=== PATIENT | male | born 1995 | race Caucasian/White ===

== ENCOUNTER 2016-11-23 19:20 | Emergency (ER) | payer OTHER ==
[2016-11-23 19:59] VITALS: BP 124/69
--- NOTE | 2016-11-23 20:36 | ED Physician Documentation ---
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 11/23/16 traZODone [Desyrel] 50 mg PO HS 11/23/16 11/23/16 - Allergies Allergies/Adverse Reactions: Allergies Allergy/AdvReac Type Severity Reaction Status Date / Time No Known Drug Allergies Allergy Verified 11/23/16 19:36 PD ED PE NORMAL - Vitals Vital signs reviewed: Yes - General General: Alert and oriented X 3 - HEENT HEENT: Moist mucous membranes (no oral lesions) - Neck Neck: Supple, no meningeal sign - Cardiac Cardiac: RRR - Respiratory Respiratory: No respiratory distress, Clear bilaterally - Extremities Extremities: Other (excoriated papular rash most notable around wrists and ankles but diffuse, also in web spaces, few burrows, no vesicles petecchiae purpura etc) Results - Vitals Vitals: Vital Signs - 24 hr 11/23/16 11/23/16 19:33 19:58 Temperature 36.6 C 35.9 C L Heart Rate 59 L 64 Respiratory 20 15 Rate Blood Pressure 126/72 124/69 O2 Saturation 100 100 Oxygen O2 Source Room air Departure - Departure Disposition: 01 Home, Self Care Clinical Impression: Scabies Condition: Good Instructions: ED Scabies Follow-Up: ANTIONE Smith [Provider Group] Prescriptions: Permethrin [Elimite] 30 gm TP ONCE #60 cream..g. Comments: If symptoms persist, may repeat treatment in one week if symptoms persist. Also if symptoms persist ask your PMD for a referral to dermatology
[2016-11-23] MEDS ORDERED: HALOPERIDOL 5 MG/ML VIAL ONE (21:19)
[2016-11-23] MEDS ORDERED: diphenhydrAMINE INJ 50 MG/ML VIAL ONE (21:19)
== END 2016-11-23 20:57 | disposition home or self-care (01) ==
LOC: ED 19:20
DX: B86 Scabies (principal)
CPT/HCPCS: 99283

== ENCOUNTER 2017-04-04 04:01 | Inpatient (IN) | payer OTHER ==
--- NOTE | 2017-04-04 04:11 | ED Physician Documentation ---
PD HPI ABD PAIN - Stated complaint Stated Complaint: ABDOMINAL PAIN - Chief complaint Chief Complaint: Abd Pain - History obtained from History obtained from: Patient - History of Present Illness Timing - onset: Yesterday Timing - duration: Days (1) Timing - details: Abrupt onset, Still present (worse the past few hours), Waxing and waning Quality: Sharp, Pain Location: RLQ Radiation: No: Chest, Lower back, Right flank Improved by: Laying still. No: Eating Worsened by: Moving, Other (cough). No: Eating, Breathing Associated symptoms: Nausea, Loss of appetite. No: Fever, Vomiting, Diarrhea, Dysuria, Hematuria, Chest pain, Testicular pain Similar symptoms before: No diagnosis (had similar couple of years ago and was in hospital in [facility] ([facility]) for 5 days with Dx of "fluid in abdomen". Patient states got IV meds and no surgery. He does not know Dx.) Recently seen: Not recently seen Review of Systems Constitutional: denies: Fever, Chills Nose: denies: Rhinorrhea / runny nose, Congestion Throat: denies: Sore throat Cardiac: denies: Chest pain / pressure, Palpitations Respiratory: reports: Cough (chronic due to Valley Fever). denies: Dyspnea GI: reports: Abdominal Pain, Nausea. denies: Abdominal Swelling, Vomiting, Constipation, Diarrhea : denies: Dysuria, Frequency, Discharge, Testicular pain Skin: denies: Rash, Lesions Musculoskeletal: denies: Back pain Neurologic: denies: Generalized weakness, Near syncope, Altered mental status Endocrine: denies: Weight loss, Easy bruising / bleeding PD PAST MEDICAL HISTORY - Past Medical History Cardiovascular: None Respiratory: Other (Valley Fever with chronic cough) Neuro: None Endocrine/Autoimmune: None GI: None - Past Surgical History Past Surgical History: No - Present Medications Home Medications: Ambulatory Orders Medication Instructions Recorded Confirmed Itraconazole [Sporanox] 100 mg PO BID 11/23/16 11/23/16 Permethrin [Elimite] 30 gm TP ONCE #60 cream..g. 11/23/16 traZODone [Desyrel] 50 mg PO HS 11/23/16 11/23/16 - Allergies Allergies/Adverse Reactions: Allergies Allergy/AdvReac Type Severity Reaction Status Date / Time No Known Drug Allergies Allergy Verified 11/23/16 19:36 - Social History Does the pt smoke?: No Smoking Status: Never smoker Does the pt drink ETOH?: No Does the pt have substance abuse?: No - Family History Family history: reports: Other (father with Ulcerative Colitis) - Immunizations Immunizations are current?: Yes PD ED PE NORMAL - Vitals Vital signs reviewed: Yes - General General: Alert and oriented X 3, Well developed/nourished, Other (appears in pain and guarding RLQ. ) - HEENT HEENT: Pharynx benign - Neck Neck: Supple, no meningeal sign, No adenopathy - Cardiac Cardiac: RRR, No murmur - Respiratory Respiratory: Clear bilaterally - Abdomen Abdomen: Soft, Non distended, No organomegaly, Other (tender RLQ and periumbilical with local guarding. No percussion tenderness. Some referred from LLQ. ) - Male Male : Other (No hernia, normal genitalia without tenderness/swelling of scrotum.) - Rectal Rectal: Deferred - Back Back: No CVA TTP - Derm Derm: Normal color, Warm and dry, No rash - Extremities Extremities: No tenderness to palpate, Normal ROM s pain - Neuro Neuro: Alert and oriented X 3, No motor deficit, Normal speech Results - Vitals Vitals: Vital Signs - 24 hr 04/04/17 04/04/17 04/04/17 04:05 04:49 05:02 Temperature 36.7 C Heart Rate 108 H 107 H 87 Respiratory 14 18 18 Rate Blood Pressure 153/99 H 143/86 H 133/80 H O2 Saturation 99 98 98 Oxygen O2 Source Room air - Labs Labs: Laboratory Tests 04/04/17 04/04/17 04/04/17 04:25 04:25 04:25 WBC 19.3 H RBC 4.64 L Hgb 15.3 Hct 44.9 MCV 96.8 H MCH 33.1 H MCHC 34.2 RDW 13.6 Plt Count 240 MPV 9.1 Neut # 14.8 H Lymph # 2.7 Rapides # 1.0 Eos # 0.7 Baso # 0.1 Absolute Nucleated RBC 0.00 Nucleated RBC % 0.0 ESR 12 Sodium 136 Potassium 3.6 Chloride 100 L Carbon Dioxide 24 Anion Gap 12.0 BUN 17 Creatinine 0.9 Estimated GFR (MDRD) 105 Glucose 104 H Calcium 9.7 Total Bilirubin 1.4 H AST 22 ALT 21 Alkaline Phosphatase 94 Total Protein 8.9 H Albumin 5.0 Globulin 3.9 Albumin/Globulin Ratio 1.3 Lipase 18 L - Rads (name of study) KUB CT Radiology: Prelim report reviewed (dilated proximal to mid small bowel, suggesting obstruction. No ureteral stones. Appendix not visualized. Small amount pelvic free fluid. ) PD MEDICAL DECISION MAKING - ED course Complexity details: reviewed results (consider Crohns or such with ileus. Doubt SBO without prior surgery. To consult Surgery and Medicine. ), re-evaluated patient (pain lessened with meds, given repeat dosing.), considered differential , d/w patient, d/w automation consultant (Dr. Chirinos, Surgery, who felt it likely inflammatory or infectious but not surgical; defers to medicine. S/W Dr. Santos , hospitalist.) Departure - Departure Disposition: ED Place in Observation Clinical Impression: Abdominal pain Qualifiers: Abdominal location: right lower quadrant Qualified Code(s): R10.31 - Right lower quadrant pain Condition: Stable Record reviewed to determine appropriate education?: Yes
[2017-04-04] MEDS ORDERED: ONDANSETRON 4 MG/2 ML VIAL IVP STA (04:21)
[2017-04-04] MEDS ORDERED: SODIUM CHLORIDE 0.9% 1,000 ML IV ONE (04:21)
[2017-04-04] MEDS ORDERED: HYDROmorphone 1 MG/ML SYRINGE IVP STA ×2 (04:21→05:13)
[2017-04-04 04:35] LABS: BASOPHILS # (AUTO) 0.1 10^3/uL (0.0-0.1); BASOPHILS % (AUTO) 0.3 %; EOSINOPHILS # (AUTO) 0.7 10^3/uL (0.0-0.7); EOSINOPHILS % (AUTO) 3.5 %; HGB - HEMOGLOBIN 15.3 g/dL (14.0-18.0); LYMPHOCYTES # (AUTO) 2.7 10^3/uL (1.5-3.5); MEAN CORPUSCULAR HEMOGLOBIN 33.1 pg (27.0-31.0); MEAN CORPUSCULAR HGB CONC 34.2 g/dL (32.0-36.0); MEAN CORPUSCULAR VOLUME 96.8 fL (80.0-94.0); MEAN PLATELET VOLUME 9.1 fL (7.4-11.4); MONOCYTES % (AUTO) 5.3 %; NEUTROPHILS # (AUTO) 14.8 10^3/uL (1.5-6.6); NEUTROPHILS % (AUTO) 76.9 %; PLT - PLATELET COUNT 240 10^3/uL (130-450); RED BLOOD COUNT 4.64 10^6/uL (4.70-6.10); RED CELL DISTRIBUTION WIDTH 13.6 % (12.0-15.0); WHITE BLOOD COUNT 19.3 x10^3/uL (4.8-10.8)
[2017-04-04 04:43] LABS: ALBUMIN/GLOBULIN RATIO 1.3 (1.0-2.2); BILIRUBIN,TOTAL 1.4 mg/dL (0.2-1.0); CALCIUM 9.7 mg/dL (8.5-10.3); CREATININE 0.9 mg/dL (0.6-1.2); TOTAL PROTEIN 8.9 g/dL (6.7-8.2)
--- NOTE | 2017-04-04 05:06 | CT Preliminary Report ---
Exam: CT KUB IMPRESSION: 1. Bilateral mild medullary nephrocalcinosis and punctate nonobstructing stones. No ureteral stone or hydronephrosis seen on either side. 2. Findings most suggestive of a distal small bowel obstruction of uncertain etiology on this non-IV contrast. Mild mesenteric edema and free fluid. [facility] SITE ID: [id number]
[2017-04-04] MEDS ORDERED: KETOROLAC 60 MG/2 ML VIAL IVP STA (05:13)
--- NOTE | 2017-04-04 05:16 | CT Report ---
EXAM: CT ABDOMEN AND PELVIS (CT KUB) EXAM DATE: 04/04/2017 04:50 AM. CLINICAL HISTORY: Right lower quadrant pain, sharp for a day. COMPARISONS: None. TECHNIQUE: Routine axial helical CT imaging was performed through the abdomen and pelvis without IV c ontrast. Reconstructions: Coronal and sagittal. In accordance with CT protocol optimization, one or more of the following dose reduction techniques w ere utilized for this exam: automated exposure control, adjustment of mA and/or KV based on patient s ize, or use of iterative reconstructive technique. FINDINGS: Lung Bases: Probable right lung base postinflammatory scarring. No effusion. Kidneys/Ureters: Bilateral mild medullary nephrocalcinosis and punctate nonobstructing stones. No ure teral stone or hydronephrosis seen on either side. Other Solid Organs: Noncontrast images of the solid organs are grossly unremarkable. Gallbladder/Bile Ducts: Unremarkable. Peritoneal Cavity: Diffusely dilated mid to distal small bowel with relatively decompressed distal il eum. Transition difficult to see but likely in the right pelvis. No gross bowel wall thickening or fr ee air. Appendix not visualized. Mild mesenteric edema and mild free fluid in the pelvis. Pelvic Organs: No bladder stones or wall thickening. Noncontrast images of the visualized pelvic orga ns are unremarkable. Vasculature: Unremarkable. Other: None. IMPRESSION: 1. Bilateral mild medullary nephrocalcinosis and punctate nonobstructing stones. No ureteral stone or hydronephrosis seen on either side. 2. Findings most suggestive of a distal small bowel obstruction of uncertain etiology on this non-IV contrast study. Mild mesenteric edema and free fluid. [facility] Referring Provider Line: [phone] SITE ID: [id number]
[2017-04-04 05:45] LABS: BILIRUBIN,URINE NEGATIVE (NEGATIVE); GLUCOSE, URINE (UA) NEGATIVE (NEGATIVE); KETONES,URINE (UA) NEGATIVE (NEGATIVE); LEUKOCYTE ESTERASE, URINE NEGATIVE (NEGATIVE); NITRITE,URINE NEGATIVE (NEGATIVE); OCCULT BLOOD,URINE NEGATIVE (NEGATIVE); PROTEIN,URINE TRACE mg/dL (NEGATIVE); UROBILINOGEN,URINE 0.2 (NORMAL) E.U./dL (NORMAL)
[2017-04-04 05:58] LABS: CLARITY,URINE CLEAR (CLEAR)
[2017-04-04] MEDS ORDERED: ONDANSETRON ODT 4 MG TABLET TL PRN (06:09)
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
[2017-04-04] MEDS: SODIUM CHLORIDE 0.9% 1,000 ML IV SCH ×2 (07:18→20:15)
[2017-04-04] MEDS: SODIUM CHLORIDE FLUSH 0.9% 10 ML SYRINGE IVP PRN (07:19)
[2017-04-04] MEDS: POLYETHYLENE GLYCOL 3350 17 GM PACKET PO SCH (07:54)
[2017-04-04] MEDS ORDERED: IOPAMIDOL-300 50 ML VIAL ONE (08:37)
[2017-04-04] MEDS ORDERED: IOPAMIDOL-300 100 ML VIAL ONE (08:37)
[2017-04-04] MEDS: HYDROmorphone 1 MG/ML SYRINGE IVP PRN ×5 (08:47→22:00)
[2017-04-04] MEDS ORDERED: IOPAMIDOL-300 100 ML VIAL IVP ONE (10:14)
[2017-04-04] MEDS ORDERED: PANTOPRAZOLE 40 MG VIAL IVP SCH (12:00)
[2017-04-04] MEDS: NICOTINE 14 MG PATCH TOP SCH (12:02)
[2017-04-04] MEDS: ACETAMINOPHEN 1,000 MG/100 ML 100 ML IV PRN (12:02)
[2017-04-04] MEDS: SODIUM CHLORIDE FLUSH 0.9% 10 ML SYRINGE IVP SCH ×2 (14:21→20:15)
[2017-04-04] MEDS: ONDANSETRON 4 MG/2 ML VIAL IVP PRN ×2 (16:33→22:08)
--- NOTE | 2017-04-04 19:41 | XRAY Report ---
EXAM: ABDOMEN RADIOGRAPHY EXAM DATE: 04/04/2017 06:00 PM. CLINICAL HISTORY: Abnormal ct scan. COMPARISON: 04/04/2017. TECHNIQUE: 1 view. FINDINGS: Bowel Gas Pattern: There are multiple dilated loops of small bowel. There is oral contrast material s een within mid and distal small bowel loops. No definite contrast is seen in the colon. There is cont rast in the urinary bladder. Other: None. IMPRESSION: Persistently dilated small bowel with small bowel oral contrast which has not yet reached the colon. KRANTHIA Referring Provider Line: [phone] SITE ID: [id number]
[2017-04-04] MEDS: PANTOPRAZOLE 40 MG VIAL IVP SCH (20:15)
[2017-04-04] MEDS ORDERED: TEMAZEPAM 15 MG CAPSULE PO PRN (21:08)
[2017-04-04] MEDS ORDERED: METHYLNALTREXONE 12 MG/0.6 ML VIAL SUBQ SCH (21:09)
--- NOTE | 2017-04-04 21:39 | PROVIDER PROGRESS NOTE ---
Subjective - Prog Note Date Prog Note Date: 04/04/17 Prog Note Time: 08:00 - Subjective Pt reports feeling: No change Subjective: Francisco has ongoing abdominal pain in RLQ. He denies SOB, chest pain, N/V or a new cough. Current Medications - Current Medications Current Medications: Active Medications Hydromorphone HCl (Dilaudid Inj Syringe) 1 mg IVP Q2H PRN PRN Reason: Pain 8 to 10 Last Admin: 04/04/17 19:53 Dose: 1 mg Acetaminophen (Ofirmev) 100 mls @ 400 mls/hr IV Q6HR PRN PRN Reason: PAIN Last Infusion: 04/04/17 12:17 Dose: Infused Potassium Chloride/Dextrose/Sod Cl (D5.45ns W/20 Meq Kcl) 1,000 mls @ 125 mls/ hr IV .Q8H [facility] Ketorolac Tromethamine (Toradol Inj) 30 mg IVP Q6HR PRN PRN Reason: PAIN Stop: 04/09/17 21:14 Methylnaltrexone [place] (Relistor) 8 mg SUBQ ONCE [facility] Stop: 04/04/17 23:59 Nicotine (Nicoderm) 1 patch TOP DAILY [facility] Last Admin: 04/04/17 12:02 Dose: Not Given Ondansetron HCl (Zofran Inj) 4 mg IVP Q6HR PRN PRN Reason: Nausea / Vomiting Last Admin: 04/04/17 16:33 Dose: 4 mg Ondansetron HCl (Zofran Odt) 4 mg TL Q6HR PRN PRN Reason: Nausea / Vomiting Pantoprazole Sodium (Protonix) 40 mg IVP BID [facility] Last Admin: 04/04/17 20:15 Dose: 40 mg Polyethylene Glycol (Miralax) 17 gm PO DAILY [facility] Last Admin: 04/04/17 07:54 Dose: Not Given Sodium Chloride (Normal Saline Flush 0.9%) 10 ml IVP PRN PRN PRN Reason: NEEDED PER PROVIDER ORDERS Last Admin: 04/04/17 07:19 Dose: 10 ml Sodium Chloride (Normal Saline Flush 0.9%) 10 ml IVP Q8HR [facility] Last Admin: 04/04/17 20:15 Dose: Not Given Temazepam (Restoril) 15 mg PO QPM PRN PRN Reason: Insomnia Itraconazole [Sporanox] 200 mg PO BID 11/23/16 traZODone [Desyrel] 150 mg PO HS 11/23/16 Objective - Vital Signs/Intake & Output Reviewed Vital Signs: Yes Vital Signs: Vital Signs x48h Temp Pulse Resp BP Pulse Ox 04/04/17 19:33 36.8 C 56 L 20 123/54 L 99 04/04/17 15:40 36.8 C 55 L 24 113/67 97 Intake & Output: Intake & Output 04/01/17 04/02/17 04/03/17 04/04/17 23:59 23:59 23:59 23:59 Intake Total 1100 Output Total 850 Balance 250 - Objective General Appearance: positive: Alert, Moderate distress Eyes Bilateral: positive: Normal inspection ENT: positive: ENT inspection nml, Pharynx nml, No signs of dehydration Neck: positive: Nml inspection, Thyroid nml, No JVD, Trachea midline Respiratory: positive: Chest non-tender, No respiratory distress, Breath sounds nml Cardiovascular: positive: Regular rate & rhythm, No murmur, No gallop Peripheral Pulses: 2+ Radial (R), 2+ Radial (L), 2+ Dorsalis pedis (R), 2+ Dorsalis pedis (L) Abdomen: positive: Tenderness, Guarding, Abnml bowel sounds (hypo) Back: positive: Nml inspection Skin: positive: Color nml, No rash, Warm, Dry Extremities: positive: Non-tender, Full ROM, Nml appearance, No pedal edema Neurologic/Psychiatric: positive: Oriented x3, CN's nml (2-12), Motor nml, Sensation nml, Depressed mood/affect Reflexes: Bicep (R): 4+, Bicep (L): 4+ - Lab Results Fish Bones: 04/05/17 05:25 04/05/17 05:25 - Diagnostic Imaging Diagnostic Imaging Results: positive: Prelim report reviewed, Final report reviewed Diagnostic Imaging Comments: FINDINGS: Bowel Gas Pattern: There are multiple dilated loops of small bowel. There is oral contrast material seen within mid and distal small bowel loops. No definite contrast is seen in the colon. There is contrast in the urinary bladder. Other: None. IMPRESSION: Persistently dilated small bowel with small bowel oral contrast which has not yet reached the colon. Assessment/Plan - Problem List (1) Abdominal pain Impression: Patient continue to have ongoing pain, elevated WBC. Differential diagnoses may include; enteritis, viral, inflammatory bowel disease, parasite or duodenitis? Plan: General surgery consulted, Dr. Chirinos has been seeing. Monitor CBC daily , strict NPO except for meds. Increased pain and nausea meds. Serial KUB x- rays per general surgery. Qualifiers: Abdominal location: right lower quadrant Qualified Code(s): R10.31 - Right lower quadrant pain (2) Abnormal CT scan, small bowel Impression: General surgery, Dr. Chirinos has ordered serial KUB x-rays to assess the persisting possible SBO verses colitis. Plan: Continue to monitor under the direction of general surgery. (3) [place] Valley fever Impression: Patient does not demonstrate residual signs of this disease with lung manifestations, etc. This bowel trouble is likely NOT related to this disease. Plan: Continue to monitor.
[2017-04-04] MEDS: D5.45NS W/20 MEQ KCL 1,000 ML IV SCH (22:03)
[2017-04-05] MEDS: HYDROmorphone 1 MG/ML SYRINGE IVP PRN ×11 (00:08→22:27)
[2017-04-05] MEDS: ONDANSETRON 4 MG/2 ML VIAL IVP PRN (05:00)
[2017-04-05] MEDS: SODIUM CHLORIDE FLUSH 0.9% 10 ML SYRINGE IVP SCH ×3 (05:20→16:00)
[2017-04-05 05:43] LABS: BASOPHILS % (AUTO) 0.4 %; EOSINOPHILS # (AUTO) 0.5 10^3/uL (0.0-0.7); EOSINOPHILS % (AUTO) 4.3 %; HGB - HEMOGLOBIN 13.6 g/dL (14.0-18.0); LYMPHOCYTES # (AUTO) 2.2 10^3/uL (1.5-3.5); MEAN CORPUSCULAR HEMOGLOBIN 33.2 pg (27.0-31.0); MEAN CORPUSCULAR HGB CONC 33.6 g/dL (32.0-36.0); MEAN CORPUSCULAR VOLUME 98.8 fL (80.0-94.0); MEAN PLATELET VOLUME 9.3 fL (7.4-11.4); MONOCYTES # (AUTO) 0.9 10^3/uL (0.0-1.0); MONOCYTES % (AUTO) 8.3 %; NEUTROPHILS # (AUTO) 7.2 10^3/uL (1.5-6.6); PLT - PLATELET COUNT 210 10^3/uL (130-450); RED CELL DISTRIBUTION WIDTH 13.5 % (12.0-15.0); WHITE BLOOD COUNT 10.8 x10^3/uL (4.8-10.8)
[2017-04-05 05:54] LABS: ALBUMIN 3.7 g/dL (3.2-5.5); ALBUMIN/GLOBULIN RATIO 1.2 (1.0-2.2); BILIRUBIN,TOTAL 2.4 mg/dL (0.2-1.0); CALCIUM 8.8 mg/dL (8.5-10.3); TOTAL PROTEIN 6.7 g/dL (6.7-8.2)
[2017-04-05] MEDS: SODIUM CHLORIDE FLUSH 0.9% 10 ML SYRINGE IVP PRN (06:23)
[2017-04-05] MEDS: D5.45NS W/20 MEQ KCL 1,000 ML IV SCH ×3 (06:23→22:27)
--- NOTE | 2017-04-05 06:57 | XRAY Report ---
EXAM: ABDOMEN RADIOGRAPHY EXAM DATE: 04/05/2017 06:37 AM. CLINICAL HISTORY: F/u abnormal ct scan with presumed bowel obstruction. COMPARISON: CT and x-rays prior day. TECHNIQUE: 1 view. FINDINGS: Bowel Gas Pattern: Persistent distal small bowel obstruction with dilated small bowel loops containin g enteric contrast. No significant colonic gas is seen. Other: None. IMPRESSION: Persistent distal small bowel obstruction. [facility] Referring Provider Line: [phone] SITE ID: [id number]
--- NOTE | 2017-04-05 07:38 | PROVIDER PROGRESS NOTE ---
Subjective - Prog Note Date Prog Note Date: 04/05/17 Prog Note Time: 07:38 - Subjective Pt reports feeling: No change Subjective: Francisco notes his pain as controlled. He denies SOB, chest pain, N/V or a new cough. The pain in unchanged. Current Medications - Current Medications Current Medications: Active Medications Hydromorphone HCl (Dilaudid Inj Syringe) 1 mg IVP Q2H PRN PRN Reason: Pain 8 to 10 Last Admin: 04/05/17 16:00 Dose: 1 mg Acetaminophen (Ofirmev) 100 mls @ 400 mls/hr IV Q6HR PRN PRN Reason: PAIN Last Infusion: 04/05/17 10:29 Dose: Infused Potassium Chloride/Dextrose/Sod Cl (D5.45ns W/20 Meq Kcl) 1,000 mls @ 125 mls/ hr IV .Q8H [facility] Last Infusion: 04/05/17 14:49 Dose: 0 mls/hr Ketorolac Tromethamine (Toradol Inj) 30 mg IVP Q6HR PRN PRN Reason: PAIN Stop: 04/09/17 21:14 Last Admin: 04/05/17 14:14 Dose: 30 mg Nicotine (Nicoderm) 1 patch TOP DAILY [facility] Last Admin: 04/05/17 07:56 Dose: Not Given Ondansetron HCl (Zofran Inj) 4 mg IVP Q6HR PRN PRN Reason: Nausea / Vomiting Last Admin: 04/05/17 05:00 Dose: 4 mg Ondansetron HCl (Zofran Odt) 4 mg TL Q6HR PRN PRN Reason: Nausea / Vomiting Pantoprazole Sodium (Protonix) 40 mg IVP BID [facility] Last Admin: 04/05/17 08:04 Dose: 40 mg Polyethylene Glycol (Miralax) 17 gm PO DAILY [facility] Last Admin: 04/05/17 07:56 Dose: Not Given Sodium Chloride (Normal Saline Flush 0.9%) 10 ml IVP PRN PRN PRN Reason: NEEDED PER PROVIDER ORDERS Last Admin: 04/05/17 06:23 Dose: 10 ml Sodium Chloride (Normal Saline Flush 0.9%) 10 ml IVP Q8HR [facility] Last Admin: 04/05/17 16:00 Dose: 10 ml Temazepam (Restoril) 15 mg PO QPM PRN PRN Reason: Insomnia Itraconazole [Sporanox] 200 mg PO BID 11/23/16 traZODone [Desyrel] 150 mg PO HS 11/23/16 Objective - Vital Signs/Intake & Output Reviewed Vital Signs: Yes Vital Signs: Vital Signs x48h Temp Pulse Resp BP Pulse Ox 04/05/17 04:15 36.7 C 67 16 111/27 L 99 04/05/17 00:05 36.8 C 69 16 108/56 L 100 Intake & Output: Intake & Output 04/02/17 04/03/17 04/04/17 04/05/17 23:59 23:59 23:59 23:59 Intake Total 1300 1002.083 Output Total 850 Balance 450 1002.083 - Objective General Appearance: positive: No acute distress, Alert Eyes Bilateral: positive: Normal inspection, PERRL ENT: positive: ENT inspection nml, Pharynx nml, No signs of dehydration Neck: positive: Nml inspection, Thyroid nml, No JVD, Trachea midline Respiratory: positive: Chest non-tender, No respiratory distress, Breath sounds nml Cardiovascular: positive: Regular rate & rhythm, No murmur, No gallop Peripheral Pulses: 2+ Radial (R), 2+ Radial (L), 2+ Dorsalis pedis (R), 2+ Dorsalis pedis (L) Abdomen: positive: Tenderness, Guarding, Abnml bowel sounds (hypo) Back: positive: Nml inspection Skin: positive: Color nml, No rash, Warm, Dry Extremities: positive: Non-tender, Full ROM, Nml appearance Neurologic/Psychiatric: positive: Oriented x3, CN's nml (2-12), Motor nml, Sensation nml, Mood/affect nml Reflexes: Bicep (R): 4+, Bicep (L): 4+ - Lab Results Fish Bones: 04/05/17 05:25 04/05/17 05:25 Other Labs: Lab Results x24hrs 04/05/17 04/05/17 Range/Units 05:25 05:25 WBC 10.8 (4.8-10.8) x10^3/uL RBC 4.10 L (4.70-6.10) 10^6/uL Hgb 13.6 L (14.0-18.0) g/dL Hct 40.5 L (42.0-52.0) % MCV 98.8 H (80.0-94.0) fL MCH 33.2 H (27.0-31.0) pg MCHC 33.6 (32.0-36.0) g/dL RDW 13.5 (12.0-15.0) % Plt Count 210 (130-450) 10^3/uL MPV 9.3 (7.4-11.4) fL Neut # 7.2 H (1.5-6.6) 10^3/uL Lymph # 2.2 (1.5-3.5) 10^3/uL [place] # 0.9 (0.0-1.0) 10^3/uL Eos # 0.5 (0.0-0.7) 10^3/uL Baso # 0.0 (0.0-0.1) 10^3/uL Absolute Nucleated RBC 0.00 x10^3/uL Nucleated RBC % 0.0 /100WBC Sodium 136 (135-145) mmol/L Potassium 4.2 (3.5-5.0) mmol/L Chloride 106 (101-111) mmol/L Carbon Dioxide 25 (21-32) mmol/L Anion Gap 5.0 L (6-13) BUN 13 (6-20) mg/dL Creatinine 1.0 (0.6-1.2) mg/dL Estimated GFR (MDRD) 93 (>89) Glucose 96 (70-100) mg/dL Calcium 8.8 (8.5-10.3) mg/dL Total Bilirubin 2.4 H (0.2-1.0) mg/dL GGT 12 (8-55) IU/L AST 17 (10-42) IU/L ALT 15 (10-60) IU/L Alkaline Phosphatase 73 (42-121) IU/L Total Protein 6.7 (6.7-8.2) g/dL Albumin 3.7 (3.2-5.5) g/dL Globulin 3.0 (2.1-4.2) g/dL Albumin/Globulin Ratio 1.2 (1.0-2.2) - Diagnostic Imaging Diagnostic Imaging Results: positive: Prelim report reviewed, Final report reviewed Diagnostic Imaging Comments: KUB x-ray: FINDINGS: Bowel Gas Pattern: Persistent distal small bowel obstruction with dilated small bowel loops containing enteric contrast. No significant colonic gas is seen. Other: None. IMPRESSION: Persistent distal small bowel obstruction. Assessment/Plan - Problem List (1) Abdominal pain Impression: Patient continue to have ongoing pain, elevated WBC. Differential diagnoses may include; enteritis, viral, inflammatory bowel disease, parasite or duodenitis? Plan: General surgery consulted, Dr. Chirinos has been seeing. Monitor CBC daily , strict NPO except for meds. Increased pain and nausea meds. Serial KUB x- rays per general surgery. Qualifiers: Abdominal location: right lower quadrant Qualified Code(s): R10.31 - Right lower quadrant pain (2) Abnormal CT scan, small bowel Impression: General surgery, Dr. Chirinos has ordered serial KUB x-rays to assess the persisting possible SBO verses colitis. Repeat CT shows likely ilieous. No surgical intervention indicated. Plan: Continue to monitor under the direction of general surgery. (3) [place] fever Impression: Patient does not demonstrate residual signs of this disease with lung manifestations, etc. This bowel trouble is likely NOT related to this disease. Plan: Continue to monitor. (4) Ileus, unspecified Impression: According to Dr. Chirinos, this is likely a Ileus as per CT of abdomen. Although , some contrast has been able to pass. Plan: Continue NPO status and encourage ambulation. No surgery indicated.
[2017-04-05] MEDS: POLYETHYLENE GLYCOL 3350 17 GM PACKET PO SCH (07:56)
[2017-04-05] MEDS: NICOTINE 14 MG PATCH TOP SCH (07:56)
[2017-04-05] MEDS: PANTOPRAZOLE 40 MG VIAL IVP SCH ×2 (08:04→20:00)
[2017-04-05] MEDS: KETOROLAC 30 MG/ML VIAL IVP PRN ×2 (08:05→14:14)
[2017-04-05] MEDS: ACETAMINOPHEN 1,000 MG/100 ML 100 ML IV PRN (10:14)
--- NOTE | 2017-04-05 11:07 | PROVIDER PROGRESS NOTE ---
Subjective - General Admit Date: 04/04/17 - Review of Systems Gastrointestinal: positive: Other (abdominal pain decreased but still present.) Objective - Patient Data Vital Signs: Vital Signs x48h Temp Pulse Resp BP Pulse Ox 04/05/17 07:39 36.9 C 77 20 116/53 L 96 04/05/17 04:15 36.7 C 67 16 111/27 L 99 Weight: Weight 04/03/17 04/04/17 04/05/17 23:59 23:59 23:59 Weight (kg) 65 kg Intake & Output: Intake and Output Totals x24h 04/03/17 04/04/17 04/05/17 23:59 23:59 23:59 Intake Total 1300 1102.083 Output Total 850 250 Balance 450 852.083 - Lab Results Lab Results: 04/05/17 05:25 04/05/17 05:25 Other Lab Results: Lab Results x24hrs 04/05/17 04/05/17 Range/Units 05:25 05:25 WBC 10.8 (4.8-10.8) x10^3/uL RBC 4.10 L (4.70-6.10) 10^6/uL Hgb 13.6 L (14.0-18.0) g/dL Hct 40.5 L (42.0-52.0) % MCV 98.8 H (80.0-94.0) fL MCH 33.2 H (27.0-31.0) pg MCHC 33.6 (32.0-36.0) g/dL RDW 13.5 (12.0-15.0) % Plt Count 210 (130-450) 10^3/uL MPV 9.3 (7.4-11.4) fL Neut # 7.2 H (1.5-6.6) 10^3/uL Lymph # 2.2 (1.5-3.5) 10^3/uL [place] # 0.9 (0.0-1.0) 10^3/uL Eos # 0.5 (0.0-0.7) 10^3/uL Baso # 0.0 (0.0-0.1) 10^3/uL Absolute Nucleated RBC 0.00 x10^3/uL Nucleated RBC % 0.0 /100WBC Sodium 136 (135-145) mmol/L Potassium 4.2 (3.5-5.0) mmol/L Chloride 106 (101-111) mmol/L Carbon Dioxide 25 (21-32) mmol/L Anion Gap 5.0 L (6-13) BUN 13 (6-20) mg/dL Creatinine 1.0 (0.6-1.2) mg/dL Estimated GFR (MDRD) 93 (>89) Glucose 96 (70-100) mg/dL Calcium 8.8 (8.5-10.3) mg/dL Total Bilirubin 2.4 H (0.2-1.0) mg/dL GGT 12 (8-55) IU/L AST 17 (10-42) IU/L ALT 15 (10-60) IU/L Alkaline Phosphatase 73 (42-121) IU/L Total Protein 6.7 (6.7-8.2) g/dL Albumin 3.7 (3.2-5.5) g/dL Globulin 3.0 (2.1-4.2) g/dL Albumin/Globulin Ratio 1.2 (1.0-2.2) - Imaging Results Radiology Imaging: positive: Other (Contrast from ct scan yesterday has still not reached the colon with persistent dilation of the small bowel.) - Current Medications Current Medications: Current Medications Generic Name Dose Route Start Last Admin Trade Name Freq PRN Reason Stop Dose Admin Hydromorphone HCl 1 mg 04/04/17 19:10 04/05/17 09:28 Dilaudid Inj Syringe IVP 1 mg Q2H PRN Administration Pain 8 to 10 Acetaminophen 100 mls @ 400 mls/hr 04/04/17 11:25 04/05/17 10:29 Ofirmev IV Infused Q6HR PRN Infusion PAIN Potassium Chloride/Dextrose/Sod Cl 1,000 mls @ 125 mls/hr 04/04/17 22:00 06/18 06:45 D5.45ns W/20 Meq Kcl IV 125 mls/hr .Q8H [facility] Infusion Ketorolac Tromethamine 30 mg 04/04/17 21:15 04/05/17 08:05 Toradol Inj IVP 04/09/17 21:14 30 mg Q6HR PRN Administration PAIN Nicotine 1 patch 04/04/17 12:00 04/05/17 07:56 Nicoderm TOP Not Given DAILY [facility] Ondansetron HCl 4 mg 04/04/17 06:09 04/05/17 05:00 Zofran Inj IVP 4 mg Q6HR PRN Administration Nausea / Vomiting Pantoprazole Sodium 40 mg 04/04/17 21:00 04/05/17 08:04 Protonix IVP 40 mg BID [facility] Administration Polyethylene Glycol 17 gm 04/04/17 09:00 04/05/17 07:56 Miralax PO Not Given DAILY [facility] Sodium Chloride 10 ml 04/04/17 06:09 04/05/17 06:23 Normal Saline Flush 0.9% IVP 10 ml PRN PRN Administration NEEDED PER PROVIDER ORDERS Sodium Chloride 10 ml 04/04/17 14:00 04/05/17 05:20 Normal Saline Flush 0.9% IVP Not Given Q8HR [facility] - Physical Exam Abdomen: positive: Other (mild tenderness in the rlq) Impression/Plan - Problem List Problem List: Ileus vs small bowel obstruction. No bowel movement. Contrast on KUB today still not in colon. No c/o nausea or vomiting with abdominal pain improving. He does not appear to have the typical findings of bowel obstruction like cramping abdominal pain, nausea, or vomting along with not having prior abdominal surgeries or internal hernias being seen on ct scan. I still feel that his case is due to ileus of unknown cause. Will order a f/u ct scan of his abdomen/pelvis.
--- NOTE | 2017-04-05 11:14 | CT Report ---
DATE OF SERVICE: 04/04/[address]: 04/04/2017 COMPARISON: Abdomen and pelvis CT earlier in the day. INDICATION: A 22-year-old man with abdominal pain. Concern for bowel obstruction. TECHNIQUE: Axial imaging of the abdomen and pelvis with intravenous contrast, 100 mL Isovue 300, and oral contrast. Coronal and sagittal reformats. In accordance with CT protocol optimization, one or more of the following dose reduction techniques were utilized for this exam: Automated exposure control, adjustment of mA and/or KV based on patient size, or use of iterative reconstructive technique. FINDINGS There is right basilar atelectasis. Lung bases appear otherwise grossly unremarkable. The liver is normal in contour without masses. The spleen, pancreas, and adrenal glands are unremarkable. Medullary nephrocalcinosis and punctate bilateral renal stones are seen to advantage on recent noncontrast abdominal imaging. No evidence of urologic obstruction. No distal stones are seen. There are dilated loops of small bowel with air fluid levels. The colon is moderately decompressed, but does contain some air within it. There is trace free fluid in the pelvis. No masses or bulky adenopathy. No bone lesions. Soft tissues unremarkable. The appendix is not well visualized, but there are no gross findings of appendicitis. IMPRESSION: Findings suggest ileus or partial bowel obstruction. Followup is available. Also, please correlate to exclude peritoneal signs. The appendix is not well visualized. NOTE: These findings were discussed with the ordering provider, Dr. Chirinos, on the day of the examination, 04/04/2017 at approximately 10 a.m. and he expressed understanding. TD: 04/04/2017 19:21 JAVIER
--- NOTE | 2017-04-05 11:47 | CONSULTATION NOTE ---
DATE OF SERVICE: 04/04/2017 Physician: Ricardo Chirinos MD REFERRING PHYSICIAN: Dr. Santos REASON FOR REFERRAL: Abdominal pain. HISTORY OF PRESENT ILLNESS: The patient is a 22-year-old male who presents with lower abdominal pain mainly in the right side, starting within the last 24 hours. He has had previous abdominal pain 2 years ago , but his symptomatology was different. His current pain is stated in the right lower quadrant and lower abdom en. He has had some nausea, but no vomiting. He has had normal bowel movements. No one else has been ill. His previous episode of abdominal pain had him have black stools. No further workup was done at that [facility], such as upper endoscopy looking for peptic ulcer disease or checking for blood in his stool. PAST MEDICAL HISTORY: [place] fever. PAST SURGICAL HISTORY: [place] tooth removal. MEDICATIONS 1. Sporanox. 2. Elimite. 3. Desyrel. ALLERGIES TO MEDICATIONS: NONE. SOCIAL HISTORY: The patient is single. HABITS: The patient does smoke and use alcohol. FAMILY HISTORY: Father with ulcerative colitis. REVIEW OF SYSTEMS A complete review of systems was obtained. Pertinent positives are: GASTROINTESTINAL: Abdominal pain. NEUROLOGICAL: Intermittent numbness in his hands. A 12-point review of systems was obtained, with pertinent positives discussed and all others being ne gative. PHYSICAL EXAMINATION VITAL SIGNS: Temperature is 36.6, pulse 93, blood pressure 155/63. GENERAL: The patient is lying on bed. He is cooperative, appears to answer questions fully not in a ny distress at the current time. HEENT: Eyes nonicteric. NECK: No lymphadenopathy. HEART: Regular. LUNGS: Clear. BACK: Nontender. ABDOMEN: Soft, mild tenderness in right lower quadrant. No rebound, no peritoneal signs. No hernia s. Positive bowel sounds. GROIN: No hernias. EXTREMITIES: No edema or cyanosis. NEUROLOGIC: The patient appears to be neurologically intact without any deficit. PSYCHOLOGICAL: The patient is coherent, cooperative, and appears to answer questions fully. DIAGNOSTIC DATA White blood cell count of 19,000. Total bilirubin 1.4, hemoglobin 15. Urinalysis is negative. CT scan of the abdomen and pelvis shows bilateral mild medullary nephrocalcinosis with nonobstructing stones, small bowel dilation with mild mesenteric edema. ASSESSMENT: Abdominal pain. The appendix was not seen on the exam of his abdomen and pelvis with CT scan. He does have some dilation of his small bowel, along with mesenteric edema. Based on his clinical ex am and history, he more likely has mesenteric lymphadenitis. Certainly other things are possible such as appendicitis, although very unlikely. A bowel obstruction also is likely secondary to not having any previous abdominal surgeries or seeing internal hernias or tumors or thickening of the bowel that would go mary lou ng with inflammatory bowel disease. I would recommend a CT scan with oral and IV contrast to further evaluat e the small intestine. If this is negative, then he is unlikely have any surgical problem and would recomm end medical therapy for his presumed mesenteric lymphadenitis. PLAN: CT scan of the abdomen and pelvis with IV and oral contrast. TD: 04/04/2017 10:02
[2017-04-05] MEDS ORDERED: METHYLNALTREXONE 12 MG/0.6 ML VIAL SUBQ SCH (17:00)
[2017-04-05] MEDS ORDERED: METHYLNALTREXONE 12 MG/0.6 ML VIAL SUBQ ONE (19:58)
[2017-04-05] MEDS: METHYLNALTREXONE 12 MG/0.6 ML VIAL SUBQ SCH (19:59)
[2017-04-06] MEDS: ACETAMINOPHEN 1,000 MG/100 ML 100 ML IV PRN (00:01)
[2017-04-06] MEDS: SODIUM CHLORIDE FLUSH 0.9% 10 ML SYRINGE IVP SCH ×3 (00:20→22:13)
[2017-04-06 05:04] LABS: BASOPHILS % (AUTO) 0.4 %; EOSINOPHILS # (AUTO) 0.5 10^3/uL (0.0-0.7); EOSINOPHILS % (AUTO) 6.7 %; HGB - HEMOGLOBIN 12.3 g/dL (14.0-18.0); LYMPHOCYTES % (AUTO) 24.7 %; MEAN CORPUSCULAR HEMOGLOBIN 33.6 pg (27.0-31.0); MEAN CORPUSCULAR VOLUME 98.9 fL (80.0-94.0); MEAN PLATELET VOLUME 9.2 fL (7.4-11.4); MONOCYTES # (AUTO) 0.8 10^3/uL (0.0-1.0); MONOCYTES % (AUTO) 9.9 %; NEUTROPHILS # (AUTO) 4.7 10^3/uL (1.5-6.6); NEUTROPHILS % (AUTO) 58.3 %; PLT - PLATELET COUNT 201 10^3/uL (130-450); RED BLOOD COUNT 3.65 10^6/uL (4.70-6.10); RED CELL DISTRIBUTION WIDTH 13.3 % (12.0-15.0); WHITE BLOOD COUNT 8.1 x10^3/uL (4.8-10.8)
[2017-04-06 05:12] LABS: ALBUMIN 3.5 g/dL (3.2-5.5); ALBUMIN/GLOBULIN RATIO 1.3 (1.0-2.2); BILIRUBIN,TOTAL 1.9 mg/dL (0.2-1.0); CALCIUM 8.6 mg/dL (8.5-10.3); CREATININE 0.9 mg/dL (0.6-1.2); TOTAL PROTEIN 6.3 g/dL (6.7-8.2)
[2017-04-06] MEDS: D5.45NS W/20 MEQ KCL 1,000 ML IV SCH ×2 (06:15→13:06)
[2017-04-06] MEDS: PANTOPRAZOLE 40 MG VIAL IVP SCH (08:03)
[2017-04-06] MEDS: NICOTINE 14 MG PATCH TOP SCH (08:03)
[2017-04-06] MEDS: POLYETHYLENE GLYCOL 3350 17 GM PACKET PO SCH (08:04)
--- NOTE | 2017-04-06 10:16 | XRAY Report ---
DATE OF SERVICE: 04/04/2017 ABDOMEN X-RAY: 04/04/2017 COMPARISON: Abdomen and pelvis CT earlier in the day. INDICATION: Followup CT scan. Ileus versus partial obstruction. FINDINGS: One view of the abdomen. There is contrast in the small bowel. No contrast is seen in the colon as yet. There are multiple dilated loops of small bowel. No obvious free air. IMPRESSION: Essentially unchanged appearance of the abdomen. Ileus versus partial small-bowel obstruction. Followup is available. TD: 04/04/2017 20:10 JAVIER
[2017-04-06] MEDS ORDERED: ACETAMINOPHEN 325 MG TABLET PO PRN (11:10)
--- NOTE | 2017-04-06 11:21 | XRAY Report ---
DATE OF SERVICE: ABDOMEN PLAIN FILMS: 04/04/2017 COMPARISON: Abdomen radiographs 04/04/2017 earlier in the day and abdomen and pelvis CTs earlier in the day. INDICATION: Followup bowel obstruction or ileus. TECHNIQUE: Frontal views of the abdomen. FINDINGS: There has been little movement if any of luminal contrast compared to the previous plain film earlier in the day at approximately 12:28 which was approximately 3.5 hours ago. Specifically, no contrast is seen within the colon as yet over the course of approximately 6 hours from administration for CT. There are persistent and perhaps worsened dilated loops of small bowel. No definite free air is seen. There is contrast within the bladder and partial distal ureterograms. IMPRESSION: Persistent and perhaps worsened appearance of small-bowel obstruction. Favor obstruction over ileus given the progression. Please consider nasogastric tube and strict evaluation of in's and out's. TD: 04/04/2017 23:12 MTDD
--- NOTE | 2017-04-06 11:50 | CT Report ---
DATE OF SERVICE: ABDOMEN AND PELVIS CT: 04/05/2017 COMPARISON STUDIES: Abdomen and pelvis CTs and multiple plain films of 2017 and earlier in the day. TECHNIQUE: Noncontrast axial images of the abdomen and pelvis with coronal and sagittal reformats. FINDINGS There is right basilar atelectasis. It is difficult to exclude a small consolidation of the right lung base. The liver has a normal contour without visualized masses. The spleen, pancreas , and adrenal glands are unremarkable. Medullary nephrocalcinosis and punctate renal stones are noted. No obstructing urologic stones are seen. Again seen are multiple dilated loops of small bowel. Contrast is mostly in small bowel with the patient being approximately 30 hours post the oral contrast CT of yesterday. There are markedly decompressed loops of distal bowel seen to advantage on today 's exam. There is contrast in the proximal colon only, indicating some transit of contrast into the colon. No discrete mass, or adenopathy is seen in the abdomen or pelvis. Urinary bladder appears unremarkable. No bone lesions. Soft tissues unremarkable. IMPRESSION 1. FINDINGS ARE HIGHLY SUGGESTIVE OF A HIGH GRADE BUT INCOMPLETE SMALL BOWEL OBSTRUCTION. DIFFERENTIAL CONSIDERATIONS WOULD INCLUDE A MASS, STRICTURE, OR POSSIBLY A MECKEL'S DIVERTICULUM. POSSIBLE TRANSIENT INTUSSUSCEPTION THAT IS NOT WELL SEEN IS LESS LIKELY. 2. THE APPENDIX IS PARTIALLY SEEN ON TODAY'S EXAM, AND APPEARS UNREMARKABLE. 3. THERE IS TRACE FREE FLUID IN THE PELVIS. In accordance with CT protocol optimization, one or more of the following dose reduction techniques were utilized for this exam: automated exposure control, adjustment of mA and/or KV based on patient size, or use of iterative reconstructive technique. TD: 04/05/2017 17:56 [facility]
[2017-04-06] MEDS: METHYLNALTREXONE 12 MG/0.6 ML VIAL SUBQ SCH (22:12)
[2017-04-07] MEDS: SODIUM CHLORIDE FLUSH 0.9% 10 ML SYRINGE IVP SCH (05:26)
--- NOTE | 2017-04-07 07:21 | PROVIDER PROGRESS NOTE ---
Subjective - Prog Note Date Prog Note Date: 04/06/17 Prog Note Time: 08:00 - Subjective Pt reports feeling: Improved Subjective: [place] is improved from yesterday. He denies SOB, chest pain, emesis or a new cough. Current Medications - Current Medications Current Medications: Active Medications Acetaminophen (Tylenol) 650 mg PO Q4HR PRN PRN Reason: Pain or Fever > 38C (100.4F) Hydromorphone HCl (Dilaudid Inj Syringe) 1 mg IVP Q2H PRN PRN Reason: Pain 8 to 10 Last Admin: 04/05/17 22:27 Dose: 1 mg Ketorolac Tromethamine (Toradol Inj) 30 mg IVP Q6HR PRN PRN Reason: PAIN Stop: 04/09/17 21:14 Last Admin: 04/05/17 14:14 Dose: 30 mg Methylnaltrexone [place] (Relistor) 12 mg SUBQ QPM [facility] Last Admin: 04/06/17 22:12 Dose: 12 mg Nicotine (Nicoderm) 1 patch TOP DAILY [facility] Last Admin: 04/06/17 08:03 Dose: Not Given Ondansetron HCl (Zofran Inj) 4 mg IVP Q6HR PRN PRN Reason: Nausea / Vomiting Last Admin: 04/05/17 05:00 Dose: 4 mg Ondansetron HCl (Zofran Odt) 4 mg TL Q6HR PRN PRN Reason: Nausea / Vomiting Pantoprazole Sodium (Protonix) 40 mg PO QDAC [facility] Polyethylene Glycol (Miralax) 17 gm PO DAILY [facility] Last Admin: 04/06/17 08:04 Dose: Not Given Sodium Chloride (Normal Saline Flush 0.9%) 10 ml IVP PRN PRN PRN Reason: NEEDED PER PROVIDER ORDERS Last Admin: 04/05/17 06:23 Dose: 10 ml Sodium Chloride (Normal Saline Flush 0.9%) 10 ml IVP Q8HR [facility] Last Admin: 04/07/17 05:26 Dose: 10 ml Temazepam (Restoril) 15 mg PO QPM PRN PRN Reason: Insomnia Itraconazole [Sporanox] 200 mg PO BID 11/23/16 traZODone [Desyrel] 150 mg PO HS 11/23/16 Objective - Vital Signs/Intake & Output Reviewed Vital Signs: Yes Vital Signs: Vital Signs x48h Temp Pulse Resp BP Pulse Ox 04/07/17 00:15 36.8 C 59 L 20 110/58 L 98 Intake & Output: Intake & Output 04/04/17 04/05/17 04/06/17 04/07/17 23:59 23:59 23:59 23:59 Intake Total 1300 3664.584 3139.583 500 Output Total 850 250 Balance 450 3414.584 3139.583 500 - Objective General Appearance: positive: No acute distress, Alert Eyes Bilateral: positive: Normal inspection ENT: positive: ENT inspection nml, Pharynx nml, No signs of dehydration Neck: positive: Nml inspection, Thyroid nml, No JVD, Trachea midline Respiratory: positive: Chest non-tender, No respiratory distress, Breath sounds nml Cardiovascular: positive: Regular rate & rhythm, No murmur, No gallop Peripheral Pulses: 2+ Radial (R), 2+ Radial (L) Abdomen: positive: Tenderness, Guarding, Rebound, Abnml bowel sounds ( hypotension) Back: positive: Nml inspection Skin: positive: Color nml, No rash, Warm, Dry Extremities: positive: Non-tender, Full ROM, Nml appearance, No pedal edema Neurologic/Psychiatric: positive: Oriented x3, CN's nml (2-12), Motor nml, Sensation nml, Depressed mood/affect (flat) Reflexes: Bicep (R): 3+, Bicep (L): 3+ - Lab Results Fish Bones: 04/06/17 04:30 04/06/17 04:30 - Diagnostic Imaging Diagnostic Imaging Results: positive: Final report reviewed Assessment/Plan - Problem List (1) Abdominal pain Impression: Patient continue to have ongoing pain, elevated WBC. Differential diagnoses may include; enteritis, viral, inflammatory bowel disease, parasite or duodenitis, now leaning towards ileous of unknown etiology. Plan: General surgery consulted, Dr. Chirinos has been seeing. Monitor CBC daily , advance diet as per surgery. Serial KUB x-rays per general surgery. Qualifiers: Abdominal location: right lower quadrant Qualified Code(s): R10.31 - Right lower quadrant pain (2) Abnormal CT scan, small bowel Impression: General surgery, Dr. Chirinos has ordered serial KUB x-rays to assess the persisting possible SBO verses colitis. Repeat CT shows likely ilieous. No surgical intervention indicated. Plan: Continue to monitor under the direction of general surgery. (3) [facility] Impression: Patient does not demonstrate residual signs of this disease with lung manifestations, etc. This bowel trouble is likely NOT related to this disease. Plan: Continue to monitor. (4) Ileus, unspecified Impression: According to Dr. Chirinos, this is likely a Ileus as per CT of abdomen. Although , some contrast has been able to pass. Plan: Continue NPO status and encourage ambulation. No surgery indicated.
--- NOTE | 2017-04-07 07:35 | Discharge Plan ---
Discharge Plan Disposition: 01 Home, Self Care Condition: Good Prescriptions: Ondansetron Odt [Zofran Odt] 4 mg TL Q6HR PRN #30 tablet PRN Reason: Nausea / Vomiting Diet: Regular Activity Restrictions: No Restrictions Shower Restrictions: No Driving Restrictions: No Weight Bearing: Full Weight Additional Instructions or Follow Up instructions: You came in with abdominal pain that was diagnosed as Ileus of unknown cause. Please follow up with Dr. Chirinos, general surgery in 2 weeks, or sooner if you have similar symptoms. Please see your PCP within the week as a follow up to this hospital stay. Please take all medications as prescribed. No Smoking: If you smoke, Please STOP! Call for help. Follow-up with: DANIA JAIMES [Primary Care Provider] -
--- NOTE | 2017-04-07 07:38 | DISCHARGE SUMMARY ---
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 Abnormal findings on diagnostic imaging of other parts of digestive tract (R93.3 ) resolved, stable. Unspecified abdominal pain (R10.9) resolved. [place] fever (B38.2) chronic, medically managed. 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 Patient states that 2 years ago he was hospitalized for abdominal pain at [facility] while in [place] fluid in the abdomen x5, days but he can't remember the diagnosis. He remembers his stool was black and they just did some blood tests, waited and it resolved on its own. Now had sudden onset of RLQ pain with nausea. 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 No diarrhea. No blood in his stool. Last BM yesterday and he doesn't want to eat now. Last meal was 7 pm last night. He's not had emesis. Pain is now more generalized to mid to lower abdomen, non- radiating, +flatus. Once arriving in the ER, he is afebile with an elevated WBC to 19K. CT scan shows early proximal bowel colitis or early SBO. Dr. Chirinos was consulted by Dr. Lara and he feels it may be inflammatory bowel disease. 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 He admits to smoking less than 1/2 a pack per day since the age of 14, but recently smoking more during the holidays. Drinks socially but with the holidays , a little more than a fifth a day. Cannibus when he was a teen. But no other recreational substance abuse. Patient will be admitted to Hospitalist service for further management of RLQ pain and General surgery consult for possible GI procedures. - CONSULTS | PROCEDURES Consultations: General surgery Procedures: No procedures, Several CT abdominal scans, KUB x-rays and NPO status as per General surgery. - HOSPITAL COURSE Hospital Course: The following problems/diagnoses were prevalent during this hospital stay: Abdominal pain: Patient continued to have ongoing pain, elevated WBC. Differential diagnoses may include; enteritis, viral, inflammatory bowel disease , parasite or duodenitis, now leaning towards ileous of unknown etiology. General surgery consulted, Dr. Chirinos has been seeing. Monitored CBC daily, advance diet as per surgery. Serial KUB x-rays per general surgery. Abnormal abdominal CT: General surgery, Dr. Chirinos has ordered serial KUB x- rays to assess the persisting possible SBO verses colitis. Repeat CT shows likely ilieous. No surgical intervention indicated. Continual monitoring under the direction of general surgery. [place] fever: Patient does not demonstrate residual signs of this disease with lung manifestations, etc. This bowel trouble is likely NOT related to this disease. Ileus: According to Dr. Chirinos, this is likely a Ileus as per CT of abdomen. Although, some contrast has been able to pass. Continued NPO status, with advancement of diet to a soft at the time of discharge. Patient was encouraged to ambulate and did not require surgery. Disposition: Patient was given IVF, IV pain medications, and Relistor SQ injections. He maintained an NPO status, then advanced to CL, and finally placed on a soft diet until the day of discharge. He was discharged home via private care in stable condition with awareness of follow ups. - ALLERGIES Allergies/Adverse Reactions: Allergies Allergy/AdvReac Type Severity Reaction Status Date / Time No Known Drug Allergies Allergy Verified 11/23/16 19:36 - MEDICATIONS Home Medications: Ambulatory Orders Medication Instructions Recorded Confirmed Itraconazole [Sporanox] 200 mg PO BID 11/23/16 04/04/17 traZODone [Desyrel] 150 mg PO HS 11/23/16 04/04/17 Ondansetron Odt [Zofran Odt] 4 mg TL Q6HR PRN #30 tablet 04/07/17 - PHYSICAL EXAM AT DISCHARGE General Appearance: positive: No acute distress, Alert Eyes Bilateral: positive: Normal inspection, PERRL ENT: positive: ENT inspection nml, Pharynx nml, No signs of dehydration Neck: positive: Nml inspection, Thyroid nml, No JVD, Trachea midline Respiratory: positive: Chest non-tender, No respiratory distress, Breath sounds nml Cardiovascular: positive: Regular rate & rhythm, No murmur, No gallop Peripheral Pulses: positive: 2+ Abdomen: positive: No organomegaly, Nml bowel sounds, No distention, Tenderness (very mild), Guarding (mild) Back: positive: Nml inspection Skin: positive: Color nml, No rash, Warm, Dry Extremities: positive: Non-tender, Full ROM, Nml appearance Neurologic/Psychiatric: positive: Oriented x3, CN's nml (2-12), Motor nml, Sensation nml, Mood/affect nml Reflexes: Bicep (R): 4+, Bicep (L): 4+ - LABS Result Diagrams: 04/06/17 04:30 04/06/17 04:30 - DIAGNOSTIC IMAGING Diagnostic Imaging Results: Final report reviewed Diagnostic Imaging Results Comments: KUB x-ray: FINDINGS: Bowel Gas Pattern: Persistent distal small bowel obstruction with dilated small bowel loops containing enteric contrast. No significant colonic gas is seen. Other: None. IMPRESSION: Persistent distal small bowel obstruction. - FOLLOW UP Follow Up: You came in with abdominal pain that was diagnosed as Ileus of unknown cause. Please follow up with Dr. Chirinos, general surgery in 2 weeks, or sooner if you have similar symptoms. Please see your PCP within the week as a follow up to this hospital stay. Please take all medications as prescribed. - TIME SPENT Time Spent in Discharge (Minutes): 45"
[2017-04-07] MEDS ORDERED: PANTOPRAZOLE 40 MG TABLET PO SCH (07:45)
[2017-04-07] MEDS: NICOTINE 14 MG PATCH TOP SCH (08:09)
[2017-04-07] MEDS: POLYETHYLENE GLYCOL 3350 17 GM PACKET PO SCH (08:13)
[2017-04-07 09:44] VITALS: BP 102/57
--- NOTE | 2017-04-07 10:27 | PROVIDER PROGRESS NOTE ---
Subjective - General Admit Date: 04/04/17 - Review of Systems General: positive: No symptoms Objective - Patient Data Vital Signs: Vital Signs x48h Temp Pulse Resp BP Pulse Ox 04/07/17 09:43 36.6 C 51 L 18 102/57 L 99 Intake & Output: Intake and Output Totals x24h 04/05/17 04/06/17 04/07/17 23:59 23:59 23:59 Intake Total 3664.584 3139.583 750 Output Total 250 Balance 3414.584 3139.583 750 - Lab Results Lab Results: 04/06/17 04:30 04/06/17 04:30 - Current Medications Current Medications: Current Medications Generic Name Dose Route Start Last Admin Trade Name Freq PRN Reason Stop Dose Admin Hydromorphone HCl 1 mg 04/04/17 19:10 04/05/17 22:27 Dilaudid Inj Syringe IVP 1 mg Q2H PRN Administration Pain 8 to 10 Ketorolac Tromethamine 30 mg 04/04/17 21:15 04/05/17 14:14 Toradol Inj IVP 04/09/17 21:14 30 mg Q6HR PRN Administration PAIN Methylnaltrexone [place] 12 mg 04/05/17 21:00 04/06/17 22:12 Relistor SUBQ 12 mg QPM ASHLEY Administration Nicotine 1 patch 04/04/17 12:00 04/07/17 08:09 Nicoderm TOP Not Given DAILY ASHLEY Ondansetron HCl 4 mg 04/04/17 06:09 04/05/17 05:00 Zofran Inj IVP 4 mg Q6HR PRN Administration Nausea / Vomiting Pantoprazole Sodium 40 mg 04/07/17 07:45 04/07/17 08:08 Protonix PO 40 mg QDAC ASHLEY Administration Polyethylene Glycol 17 gm 04/04/17 09:00 04/07/17 08:13 Miralax PO 17 gm DAILY ASHLEY Administration Sodium Chloride 10 ml 04/04/17 06:09 04/05/17 06:23 Normal Saline Flush 0.9% IVP 10 ml PRN PRN Administration NEEDED PER PROVIDER ORDERS Sodium Chloride 10 ml 04/04/17 14:00 04/07/17 05:26 Normal Saline Flush 0.9% IVP 10 ml Q8HR ASHLEY Administration - Physical Exam Abdomen: positive: Non-tender Impression/Plan - Problem List Problem List: Ileus unknown cause appears to have resolved. +flatus today without any c/o nausea or vomiting. May d/c home with f/u with PCP.
--- NOTE | 2017-04-07 10:29 | PROVIDER PROGRESS NOTE ---
Subjective - General Admit Date: 04/04/17 - Review of Systems General: positive: No symptoms Gastrointestinal: positive: Other (Loose bowel movement today.) Objective - Patient Data Vital Signs: Vital Signs x48h Temp Pulse Resp BP Pulse Ox 04/07/17 09:43 36.6 C 51 L 18 102/57 L 99 Intake & Output: Intake and Output Totals x24h 04/05/17 04/06/17 04/07/17 23:59 23:59 23:59 Intake Total 3664.584 3139.583 750 Output Total 250 Balance 3414.584 3139.583 750 - Lab Results Lab Results: 04/06/17 04:30 04/06/17 04:30 - Current Medications Current Medications: Current Medications Generic Name Dose Route Start Last Admin Trade Name Freq PRN Reason Stop Dose Admin Hydromorphone HCl 1 mg 04/04/17 19:10 04/05/17 22:27 Dilaudid Inj Syringe IVP 1 mg Q2H PRN Administration Pain 8 to 10 Ketorolac Tromethamine 30 mg 04/04/17 21:15 04/05/17 14:14 Toradol Inj IVP 04/09/17 21:14 30 mg Q6HR PRN Administration PAIN Methylnaltrexone [place] 12 mg 04/05/17 21:00 04/06/17 22:12 Relistor SUBQ 12 mg QPM ASHLEY Administration Nicotine 1 patch 04/04/17 12:00 04/07/17 08:09 Nicoderm TOP Not Given DAILY ASHLEY Ondansetron HCl 4 mg 04/04/17 06:09 04/05/17 05:00 Zofran Inj IVP 4 mg Q6HR PRN Administration Nausea / Vomiting Pantoprazole Sodium 40 mg 04/07/17 07:45 04/07/17 08:08 Protonix PO 40 mg QDAC ASHLYE Administration Polyethylene Glycol 17 gm 04/04/17 09:00 04/07/17 08:13 Miralax PO 17 gm DAILY ASHLEY Administration Sodium Chloride 10 ml 04/04/17 06:09 04/05/17 06:23 Normal Saline Flush 0.9% IVP 10 ml PRN PRN Administration NEEDED PER PROVIDER ORDERS Sodium Chloride 10 ml 04/04/17 14:00 04/07/17 05:26 Normal Saline Flush 0.9% IVP 10 ml Q8HR ASHLEY Administration - Physical Exam Abdomen: positive: Non-tender, Nml bowel sounds Impression/Plan - Problem List Problem List: Ileus resolving. CT scan shows contrast in colon. Loose bowel movement today. Move bowel tones being heard today. Tolerating liquids. Regular diet.
== END 2017-04-07 11:00 | disposition home or self-care (01) | DRG 389 ==
LOC: ED 04:01 → MS3 06:10
PROVIDERS: ADMIT Specialist; ATTEND Nurse Practitioner
DX: K56.7 Ileus, unspecified (principal); B38.1 Chronic pulmonary coccidioidomycosis; F32.9 Major depressive disorder, single episode, unspecified; Z83.79 Family history of other diseases of the digestive system; Z79.899 Other long term (current) drug therapy; Z72.0 Tobacco use
CPT/HCPCS: 36415; 74018; 74176; 74177; 80053; 81001; 81003; 82150; 82977; 83690; 85025; 85651; 87086; 96361; 96374; 96375; 96376; 99284; 99285

== ENCOUNTER 2018-05-02 20:33 | Emergency (ER) | payer OTHER ==
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
[2018-05-02 20:45] VITALS: BP 135/66
[2018-05-02] MEDS ORDERED: IBUPROFEN 600 MG TABLET PO STA (21:03)
[2018-05-02] MEDS ORDERED: prednisoLONE 1% OPHTH DROPS 75 DROPS/5 ML BOTTLE EACHEYE STA (21:04)
[2018-05-02] MEDS ORDERED: ACETAMINOPHEN 325 MG TABLET PO STA (21:04)
[2018-05-02] MEDS ORDERED: prednisoLONE 1% OPHTH DROPS 75 DROPS/5 ML BOTTLE ONE (21:21)
== END 2018-05-02 21:28 | disposition home or self-care (01) ==
LOC: ED 20:33
DX: H10.213 Acute toxic conjunctivitis, bilateral (principal); F17.200 Nicotine dependence, unspecified, uncomplicated
CPT/HCPCS: 99282; A9270